=== PATIENT | female | born 1950 | race Hispanic/Latino ===

== ENCOUNTER 2020-07-20 19:22 | Emergency (ER) | payer MEDICARE, OTHER ==
[~2020-07-20] VITALS: Ht 154.9 cm; Wt 92.5 kg
[2020-07-20] MEDS ORDERED: HYDROCODONE/APAP 10MG-325MG TAB PO ONE (20:00)
[2020-07-20] MEDS ORDERED: NAPROXEN250 MG PO (22:03)
== END 2020-07-21 | disposition home or self-care (01) ==
LOC: ER 19:26
DX: S43.402A Unspecified sprain of left shoulder joint, initial encounter (principal); M25.532 Pain in left wrist; X50.1XXA Overexertion from prolonged static or awkward postures, initial encounter; Y92.003 Bedroom of unspecified non-institutional (private) residence as the place of occurrence of the external cause; I10 Essential (primary) hypertension; M79.7 Fibromyalgia; I25.2 Old myocardial infarction; Z98.0 Intestinal bypass and anastomosis status; Z96.653 Presence of artificial knee joint, bilateral
CPT/HCPCS: 99284